=== PATIENT | female | born 1990 | race Caucasian/White ===

== ENCOUNTER 2017-08-11 20:01 | Emergency (ER) | payer MEDICAID, OTHER ==
[~2017-08-11] VITALS: Ht 170.2 cm; Wt 99.8 kg
[2017-08-11 20:01] VITALS: BP_SYST 137
[~2017-08-11 20:01] MED LIST: KEFLEX
[2017-08-11 21:47] LABS: BILIRUBIN,URINE NEGATIVE (NEGATIVE); BLOOD, URINE 3+ (NEGATIVE); CLARITY/URINE CLOUDY (CLEAR); GLUCOSE,URINE NEGATIVE (NEGATIVE); KETONES,URINE 3+ (NEGATIVE); LEUKOCYTE ESTERASE ,URINE 1+ (NEGATIVE); NITRITE, URINE POSITIVE (NEGATIVE); PROTEIN URINE 2+ (NEGATIVE)
[2017-08-11 21:58] LABS: COLOR,URINE RED (YELLOW)
[2017-08-11 22:06] LABS: BACTERIA,URINE MODERATE /HPF (None Seen); RBC,URINE >100 /HPF (0-3)
[2017-08-11 22:32] LABS: BASOPHILS # (AUTO) 0.2 K/uL (0.0-0.2); EOSINOPHILS # (AUTO) 0.1 K/uL (0.0-0.4); EOSINOPHILS % (AUTO) 0.8 % (0.0-4.0); HEMATOCRIT 38.5 % (36-48); HEMOGLOBIN 12.7 g/dL (12.0-16.0); LYMPHOCYTES # (AUTO) 1.8 K/uL (1.0-5.5); LYMPHOCYTES % (AUTO) 17.1 % (20.5-51.5); MEAN CORPUSCULAR HEMOGLOBIN 27 pg (27-31); MEAN CORPUSCULAR HGB CONC 33 % (32-36); MEAN CORPUSCULAR VOLUME 81 fL (79.0-98.0); MONOCYTES # (AUTO) 0.5 K/uL (0.0-1.0); MONOCYTES % (AUTO) 4.8 % (1.7-9.3); NEUTROPHILS # (AUTO) 8.2 K/uL (1.8-7.7); NEUTROPHILS % (AUTO) 75.3 % (40.0-70.0); PLATELET COUNT (AUTO) 288 K/uL (130-430); RED BLOOD CELL COUNT(AUTO) 4.76 MIL/uL (4.2-6.2); RED CELL DISTRIBUTION WIDTH 13.4 % (9.0-15.0); WHITE BLOOD COUNT (AUTO) 10.8 K/uL (4.8-10.8)
[2017-08-12 00:05] VITALS: BP_SYST 137
== END 2017-08-12 00:05 | disposition home or self-care (01) ==
LOC: SED 20:01
DX: O20.0 Threatened abortion (principal); O23.41 Unspecified infection of urinary tract in pregnancy, first trimester; F41.0 Panic disorder [episodic paroxysmal anxiety]; Z3A.01 Less than 8 weeks gestation of pregnancy
CPT/HCPCS: 36415; 76801; 76817; 81000-TC; 81025; 84702-TC; 85025; 86901; 99285

== ENCOUNTER 2017-08-13 18:54 | Emergency (ER) | payer MEDICAID ==
[~2017-08-13] VITALS: Ht 170.2 cm; Wt 99.8 kg
[2017-08-13 19:26] VITALS: BP_SYST 108
[2017-08-13 22:46] VITALS: BP_SYST 113
== END 2017-08-13 22:46 | disposition home or self-care (01) ==
LOC: SED 18:54
DX: O20.0 Threatened abortion (principal); F41.0 Panic disorder [episodic paroxysmal anxiety]; Z3A.01 Less than 8 weeks gestation of pregnancy; Z90.89 Acquired absence of other organs
CPT/HCPCS: 36415; 76801; 76817; 81025; 84702-TC; 99285

== ENCOUNTER 2018-08-05 10:57 | Emergency (ER) | payer MEDICAID, OTHER ==
[~2018-08-05] VITALS: Ht 167.6 cm; Wt 108.9 kg
[2018-08-05 11:09] VITALS: BP_SYST 115
--- NOTE | 2018-08-05 11:38 | NUR ---
patient placed in bed 5
--- NOTE | 2018-08-05 11:40 | NUR ---
ER Dr. French at bedside examining patient.
--- NOTE | 2018-08-05 11:50 | NUR ---
Pt C/O shortness of breath x 3 days. Pt states on Saturday night she woke up from sleeping and started experiencing shortness of breath and arm and leg numbness. Pt states she has been undergoing alot of stress in her personal life lately. Currently the is stable and C/O head and back pain 02/02. Vital signs are stable, will continue to monitor
[2018-08-05 12:22] LABS: BASOPHILS # (AUTO) 0.1 K/uL (0.0-0.2); BASOPHILS % (AUTO) 0.7 % (0.0-2.0); EOSINOPHILS # (AUTO) 0.1 K/uL (0.0-0.4); HEMATOCRIT 36.1 % (36-48); HEMOGLOBIN 11.6 g/dL (12.0-16.0); LYMPHOCYTES # (AUTO) 1.6 K/uL (1.0-5.5); LYMPHOCYTES % (AUTO) 21.6 % (20.5-51.5); MEAN CORPUSCULAR HEMOGLOBIN 25 pg (27-31); MEAN CORPUSCULAR HGB CONC 32 % (32-36); MEAN CORPUSCULAR VOLUME 77 fL (79.0-98.0); MONOCYTES # (AUTO) 0.2 K/uL (0.0-1.0); MONOCYTES % (AUTO) 3.3 % (1.7-9.3); NEUTROPHILS # (AUTO) 5.2 K/uL (1.8-7.7); NEUTROPHILS % (AUTO) 72.4 % (40.0-70.0); PLATELET COUNT (AUTO) 321 K/uL (130-430); RED BLOOD CELL COUNT(AUTO) 4.71 MIL/uL (4.2-6.2); RED CELL DISTRIBUTION WIDTH 14.5 % (9.0-15.0); WHITE BLOOD COUNT (AUTO) 7.3 K/uL (4.8-10.8)
[2018-08-05 12:36] LABS: CREATININE 0.73 mg/dL (0.55-1.30); POTASSIUM 3.6 mmol/L (3.5-5.1)
[2018-08-05 12:41] LABS: ALBUMIN 3.5 g/dL (3.4-4.8); TOTAL BILIRUBIN 0.4 mg/dL (0.0-1.0)
--- NOTE | 2018-08-05 12:45 | NUR ---
Pt is resting quietly in bed, no acute distress noted. Will continue to monitor
--- NOTE | 2018-08-05 13:12 | NUR ---
DR SORTO AT BEDSIDE FOR RE-EVALUATION
[2018-08-05 13:45] VITALS: BP_SYST 118
--- NOTE | 2018-08-05 13:49 | NUR ---
Patient given written and verbal discharge instructions and verbalizes understanding. ER MD discussed with patient the results and treatment provided. Patient in stable condition. ID arm band removed. Rx of Ativan given. Patient educated on pain management and to follow up with PMD. Pain Scale 0/10. Opportunity for questions provided and answered. Medication side effect fact sheet provided.
== END 2018-08-05 13:45 | disposition home or self-care (01) ==
LOC: SED 10:57
DX: L05.91 Pilonidal cyst without abscess (principal); F41.9 Anxiety disorder, unspecified
CPT/HCPCS: 36415; 71045; 80053; 82550-TC; 83880; 85025; 93005; 99284

== ENCOUNTER 2018-08-10 14:56 | Emergency (ER) | payer OTHER ==
[~2018-08-10] VITALS: Ht 167.6 cm; Wt 108.9 kg
[2018-08-10] MEDS ORDERED: NACL 0.9% 1,000 ML IV ONE (15:02)
[2018-08-10 15:05] VITALS: BP_SYST 129
[2018-08-10] MEDS ORDERED: KETOROLAC TROMETHAMINE 30 MG VIAL IVP ONE (15:15)
[2018-08-10] MEDS ORDERED: ONDANSETRON HCL 4 MG/2 ML VIAL IVP ONE (15:15)
[2018-08-10 15:35] LABS: CALCIUM 9.4 mg/dL (8.4-11.0); CREATININE 0.9 mg/dL (0.55-1.30); EOSINOPHILS # (AUTO) 0.1 K/uL (0.0-0.4); EOSINOPHILS % (AUTO) 2.3 % (0.0-4.0); POTASSIUM 3.7 mmol/L (3.5-5.1)
[2018-08-10 15:38] LABS: INR 1.1 (0.8-1.2)
[2018-08-10 15:42] LABS: BASOPHILS % (AUTO) 0.8 % (0.0-2.0); HEMATOCRIT 37.1 % (36-48); HEMOGLOBIN 11.6 g/dL (12.0-16.0); LYMPHOCYTES # (AUTO) 1.4 K/uL (1.0-5.5); LYMPHOCYTES % (AUTO) 24.2 % (20.5-51.5); MEAN CORPUSCULAR HEMOGLOBIN 24 pg (27-31); MEAN CORPUSCULAR HGB CONC 31 % (32-36); MEAN CORPUSCULAR VOLUME 77 fL (79.0-98.0); MONOCYTES # (AUTO) 0.2 K/uL (0.0-1.0); NEUTROPHILS # (AUTO) 4.2 K/uL (1.8-7.7); NEUTROPHILS % (AUTO) 68.7 % (40.0-70.0); PLATELET COUNT (AUTO) 312 K/uL (130-430); RED BLOOD CELL COUNT(AUTO) 4.81 MIL/uL (4.2-6.2); RED CELL DISTRIBUTION WIDTH 15.2 % (9.0-15.0); WHITE BLOOD COUNT (AUTO) 5.9 K/uL (4.8-10.8)
[2018-08-10 15:49] LABS: BILIRUBIN,URINE NEGATIVE (NEGATIVE); BLOOD, URINE 2+ (NEGATIVE); CLARITY/URINE CLEAR (CLEAR); COLOR,URINE YELLOW (YELLOW); GLUCOSE,URINE NEGATIVE (NEGATIVE); KETONES,URINE NEGATIVE (NEGATIVE); LEUKOCYTE ESTERASE ,URINE NEGATIVE (NEGATIVE); NITRITE, URINE NEGATIVE (NEGATIVE); PROTEIN URINE NEGATIVE (NEGATIVE); UROBILINOGEN,URINE 0.2 (0.2-1.0)
[2018-08-10 15:51] LABS: ALBUMIN 3.5 g/dL (3.4-4.8); TOTAL BILIRUBIN 0.2 mg/dL (0.0-1.0)
[2018-08-10 16:00] LABS: BACTERIA,URINE FEW /HPF (None Seen); MUCUS,URINE None Seen /LPF (None Seen); RBC,URINE 0-3 /HPF (0-3); WBC,URINE 0-3 /HPF (0-3)
[2018-08-10 16:55] VITALS: BP_SYST 129
== END 2018-08-10 16:55 | disposition home or self-care (01) ==
LOC: SED 14:56
DX: N23 Unspecified renal colic (principal); N83.8 Other noninflammatory disorders of ovary, fallopian tube and broad ligament; Z90.89 Acquired absence of other organs
CPT/HCPCS: 36415; 71045; 74176; 80053; 81000; 82150; 82550; 83605; 83690; 84484; 85025; 85610; 85730; 87040; 93005; 96361; 96374; 96375; 99284; J1885; J2405; J7030

== ENCOUNTER 2018-10-23 19:49 | Emergency (ER) | payer OTHER ==
[~2018-10-23] VITALS: Ht 170.2 cm; Wt 113.4 kg
[2018-10-23 19:54] VITALS: BP_SYST 161
--- NOTE | 2018-10-23 19:57 | NUR ---
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 To gown for exam. Side rails up.
--- NOTE | 2018-10-23 21:00 | NUR ---
ER at bedside examining patient.
--- NOTE | 2018-10-23 21:05 | NUR ---
Pt came to the ED for SOB and chest pain. Pt repors that she has R sided throat pain with associated tightness. Pt reports bilateral earaches and describes it as "popping sensation." Pt has an appointment with oral surgeon on 11/12/2018. She has been taking amoxicillin 2 weeks ago. Denies fever, chills, nausea, vomiting, diarrhea. No other complaints/injuries noted. Will cont. to monitor.
[2018-10-23 21:17] VITALS: BP_SYST 133
--- NOTE | 2018-10-23 21:20 | NUR ---
Patient given written and verbal discharge instructions and verbalizes understanding. ER MD Dr. Salazar discussed with patient the results and treatment provided. Patient in stable condition. ID arm band removed. Rx of augmentin and medrol PO given. Patient educated on pain management and to follow up with PMD within 2-3 days. Pain Scale 2/10. Pt able to ambulate with steady gait, no signs of acute distress. Opportunity for questions provided and answered. Medication side effect fact sheet provided.
== END 2018-10-23 21:20 | disposition home or self-care (01) ==
LOC: SED 19:49
DX: J02.9 Acute pharyngitis, unspecified (principal); R03.0 Elevated blood-pressure reading, without diagnosis of hypertension; F41.0 Panic disorder [episodic paroxysmal anxiety]; Z90.49 Acquired absence of other specified parts of digestive tract; Z79.899 Other long term (current) drug therapy
CPT/HCPCS: 81025; 99283

== ENCOUNTER 2019-03-03 17:03 | Emergency (ER) | payer OTHER ==
[~2019-03-03] VITALS: Ht 170.2 cm; Wt 104.3 kg
[2019-03-03 17:09] VITALS: BP_SYST 124
--- NOTE | 2019-03-03 17:15 | NUR ---
Patient to ER bed 4 to gown for evaluation. Side rails up. Report given to Roro TRUONG.
--- NOTE | 2019-03-03 17:19 | NUR ---
Patient came into ED due to a left earache that she's had for about a month. Started with bilateral ear clogging then since saturday progressed to left ear pain that radiates to her left eye, cheek, and left side of chest. Patient states that she has some nausea but no V/D. Patient states that her left eye is slightly blurry as well. Pt denies SOB. Pt reports stuffy, runny nose. Will continue to monitor.
--- NOTE | 2019-03-03 17:24 | NUR ---
FABRIZIO Carter at bedside examining patient.
[2019-03-03 17:40] VITALS: BP_SYST 124
--- NOTE | 2019-03-03 17:47 | NUR ---
Patient given written and verbal discharge instructions and verbalizes understanding. ER MD discussed with patient the results and treatment provided. Patient in stable condition. ID arm band removed. Rx of Cetirizine Hydrocholoride given. Patient educated on pain management and to follow up with PMD. Pain Scale 2/10. Opportunity for questions provided and answered. Medication side effect fact sheet provided.
== END 2019-03-03 17:47 | disposition home or self-care (01) ==
LOC: SED 17:03
DX: H65.92 Unspecified nonsuppurative otitis media, left ear (principal); J30.9 Allergic rhinitis, unspecified; F41.0 Panic disorder [episodic paroxysmal anxiety]; Z86.79 Personal history of other diseases of the circulatory system; Z90.89 Acquired absence of other organs
CPT/HCPCS: 99282

== ENCOUNTER 2019-11-22 05:37 | Emergency (ER) | payer SELFPAY ==
[~2019-11-22] VITALS: Ht 170.2 cm; Wt 117.9 kg
[2019-11-22 05:50] VITALS: BP_SYST 119
[2019-11-22] MEDS ORDERED: ONDANSETRON 4 MG ODT TAB PO ONE (06:00)
[2019-11-22 06:42] VITALS: BP_SYST 122
== END 2019-11-22 06:42 | disposition home or self-care (01) ==
LOC: SED 05:37
DX: S51.851A Open bite of right forearm, initial encounter (principal); K52.9 Noninfective gastroenteritis and colitis, unspecified; F41.0 Panic disorder [episodic paroxysmal anxiety]; Z86.73 Personal history of transient ischemic attack (TIA), and cerebral infarction without residual deficits; W57.XXXA Bitten or stung by nonvenomous insect and other nonvenomous arthropods, initial encounter; Y93.89 Activity, other specified; Y92.89 Other specified places as the place of occurrence of the external cause; Y99.8 Other external cause status
CPT/HCPCS: 81002; 81025; 99283; Q0162

== ENCOUNTER 2021-10-25 15:59 | Emergency (ER) | payer OTHER ==
[~2021-10-25] VITALS: Ht 170.2 cm; Wt 117.9 kg
[2021-10-25 16:00] VITALS: BP_SYST 125
[2021-10-25] MEDS ORDERED: NACL 0.9% 1,000 ML IV ONE (16:15)
[2021-10-25] MEDS ORDERED: ONDANSETRON HCL 4 MG/2 ML VIAL IVP ONE ×2 (16:15→18:15)
[2021-10-25 16:35] LABS: BASOPHILS # (AUTO) 0.1 K/uL (0.0-0.2); BASOPHILS % (AUTO) 0.9 % (0.0-2.0); EOSINOPHILS # (AUTO) 0.3 K/uL (0.0-0.4); EOSINOPHILS % (AUTO) 2.3 % (0.0-4.0); HEMOGLOBIN 12.1 g/dL (12.0-16.0); LYMPHOCYTES # (AUTO) 2.1 K/uL (1.0-5.5); LYMPHOCYTES % (AUTO) 17.4 % (20.5-51.5); MEAN CORPUSCULAR HEMOGLOBIN 23 pg (27-31); MEAN CORPUSCULAR HGB CONC 32 % (32-36); MEAN CORPUSCULAR VOLUME 73 fL (79.0-98.0); MONOCYTES # (AUTO) 0.6 K/uL (0.0-1.0); MONOCYTES % (AUTO) 4.9 % (1.7-9.3); NEUTROPHILS # (AUTO) 8.9 K/uL (1.8-7.7); NEUTROPHILS % (AUTO) 74.5 % (40.0-70.0); PLATELET COUNT (AUTO) 331 K/uL (130-430); RED BLOOD CELL COUNT(AUTO) 5.21 MIL/uL (4.2-6.2); RED CELL DISTRIBUTION WIDTH 17.4 % (9.0-15.0); WHITE BLOOD COUNT (AUTO) 11.9 K/uL (4.8-10.8)
[2021-10-25 16:38] LABS: CALCIUM 8.5 mg/dL (8.4-11.0); CREATININE 0.66 mg/dL (0.55-1.30); POTASSIUM 3.5 mmol/L (3.5-5.1)
[2021-10-25 16:44] LABS: ALBUMIN 3.8 g/dL (3.4-4.8); TOTAL BILIRUBIN 0.4 mg/dL (0.0-1.0)
[2021-10-25] MEDS ORDERED: PROCHLORPERAZINE EDISYLATE 10 MG/2 ML VIAL IVP ONE (17:00)
[2021-10-25] MEDS ORDERED: METOCLOPRAMIDE HCL 10 MG/2 ML VIAL IVP ONE (17:30)
[2021-10-25] MEDS ORDERED: DIPHENHYDRAMINE INJ 50 MG/ML VIAL IVP ONE (17:30)
[2021-10-25] MEDS ORDERED: ACETAMINOPHEN 500 MG TABLET PO ONE (18:15)
[2021-10-25] MEDS ORDERED: ONDA-8 TL (19:13)
[2021-10-25 19:30] VITALS: BP_SYST 103
== END 2021-10-25 19:30 | disposition home or self-care (01) ==
LOC: SED 15:59
DX: R11.2 Nausea with vomiting, unspecified (principal); R10.84 Generalized abdominal pain; R19.7 Diarrhea, unspecified; Z98.890 Other specified postprocedural states; Z79.899 Other long term (current) drug therapy
CPT/HCPCS: 36415; 80053; 81002; 81025; 83690; 85025; 96361; 96374; 96376; 99284; J2405; J7030